=== PATIENT | female | born 1990 | race Caucasian/White ===

== ENCOUNTER → 2018-11-11 | Outpatient (CLI) | payer OTHER ==
--- NOTE | 2018-11-11 08:36 | FL ---
EXAMINATION: Upper GI examination DATE: 11/11/2018 CLINICAL INDICATION: 27 year-old female epigastric pain, heartburn COMPARISON: None Total Fluoroscopy Time: 1 minute 27 seconds. Total images: 28. Radiation dose was decreased by utilizing the slowest fluoroscopy rate and utilizing last image hold save screens rather than radiographic exposures. FINDINGS: The esophagus has a normal course, caliber, motility and mucosa. There is a tiny sliding hiatal hernia intermittently noticed. An episode of mild gastroesophageal reflux is spontaneously encountered when the patient is supine. V alsalva and positional maneuvers failed to elicit additional reflux. The stomach and duodenum are free of any persistent filling defect and demonstrate a normal mucosal p attern. IMPRESSION: Tiny sliding hiatal hernia and an episode of spontaneous mild gastroesophageal reflux which may be un derestimated on this exam. Otherwise, normal upper GI examination.
--- NOTE | 2018-11-11 09:53 | US ---
EXAMINATION TYPE: US abdomen complete DATE OF EXAM: 11/11/2018 COMPARISON: NONE CLINICAL HISTORY: 27-year-old female R10.13 EPIGASTRIC PAIN. TECHNIQUE: Multiple sonographic images of the abdomen are obtained. FINDINGS: EXAM MEASUREMENTS: Liver Length: 14.4 cm Gallbladder Wall: 0.2 cm CBD: 0.5 cm Spleen: 10.8 cm Right Kidney: 10.0 x 4.4 x 5.3 cm Left Kidney: 10.0 x 5.0 x 5.0 cm Pancreas: Only a small portion of the pancreatic tail is obscured by bowel gas shadowing. Remainder shows no gross abnormality. Liver: wnl Gallbladder: wnl Evidence for sonographic Saeed's sign: No CBD: wnl Spleen: wnl Right Kidney: No hydronephrosis. Left Kidney: No hydronephrosis. Upper IVC: wnl Abd Aorta: wnl IMPRESSION: Unremarkable sonographic examination of the abdomen.
== END | disposition home or self-care (01) ==
LOC: RADUSWWP 07:25
PROVIDERS: ATTEND Family Medicine
DX: K44.9 Diaphragmatic hernia without obstruction or gangrene (principal); K21.9 Gastro-esophageal reflux disease without esophagitis
CPT/HCPCS: 49424; 74246; 76700

== ENCOUNTER → 2022-02-24 | Outpatient (CLI) | payer OTHER ==
--- NOTE | 2022-02-24 09:40 | US ---
EXAMINATION TYPE: US pelvic complete DATE OF EXAM: 02/24/2022 COMPARISON: NONE CLINICAL HISTORY: N91.2 AMENORRHEA, UNSPECIFIED,E28.2,R10.31. cycle was 3 weeks late, never happened before, pelvic tenderness on exam, TECHNIQUE: TA. Transabdominal sonographic images of the pelvis were acquired. Date of LMP: 02/13/2022 EXAM MEASUREMENTS: Uterus: 5.8 x 3.4 x 2.7 cm Endometrial Stripe: 0.4 cm Right Ovary: 2.2 x 1.8 x 1.4 cm Left Ovary: 3.3 x 2.7 x 1.8 cm 1. Uterus: Anteverted wnl 2. Endometrium: wnl 3. Right Ovary: wnl 4. Left Ovary: wnl 5. Bilateral Adnexa: wnl 6. Posterior cul-de-sac: wnl IMPRESSION: No significant abnormalities evident and transabdominal scanning
== END | disposition home or self-care (01) ==
LOC: RADUSWWP 07:55
PROVIDERS: ATTEND Family Medicine
DX: E28.2 Polycystic ovarian syndrome (principal); R10.31 Right lower quadrant pain
CPT/HCPCS: 76856